=== PATIENT | female | born 1940 | race Caucasian/White ===

== ENCOUNTER → 2018-07-04 | Day surgery (SDC) | payer MEDICARE ==
[~2018-07-04] VITALS: Ht 165.1 cm; Wt 81.6 kg
[~2018-07-04] MED LIST: ALEVE220 MG PO; ALPHA LIPOIC300 MG; ALPHA LIPOIC300 MG PO; AMARYL4 MG PO; CARVEDILOL12.5 MG PO; CATALYN; CATAPLEX D; FISH OIL 1,2001 EACH PO; FISH OIL 10001000 MG PO; GLIPIZIDE10 M2 PO; GLUCOPHAGE500 M1 PO; GLYBURIDE2.5 MG PO; LEVOTHYROXINE125 MCG PO; LISINOPRIL40 MG PO; Levoxyl0.137 MG PO; METFORMIN500 MG PO; MULTIPLE VITAMI1 CAP PO; OMEPRAZOLE20 MG; PROBIOTIC250 MG PO; SILYMARIN PO; SIMVASTATIN20 MG PO; TRACE MINERALS; ULTRA B-100 CO1 EACH PO; VITAMIN D PO; VITAMIN D31000 UNI1 PO; [UNRECOGNIZED DRUG - OTHER]; [UNRECOGNIZED DRUG - REMARK]
--- NOTE | ~2018-07-04 | O ---
[place], [place] OPERATIVE NOTE NAME: JEFF CLARKE UNIT #: [id number] ROOM: DOCTOR: MARIA ELENA PARKER MD BIRTHDATE: [birth year] DOS: 07/04/2018 GASTROENDOSCOPIC REPORT HISTORY OF PRESENT ILLNESS: A 77-year-old patient who was presented with chief complaint of history of colonic polyp, family history of colonic carcinoma in grandfather and some changes in bowel habit. PAST MEDICAL HISTORY: Hypertension, diabetes mellitus, hypercholesterolemia, hypothyroidism. PAST SURGICAL HISTORY: Cholecystectomy and ankle repair. SOCIAL HISTORY: Nonsmoker, nonalcohol consumer. PROCEDURE: Today's procedure part of investigation is colonoscopy. PREMEDICATION: Propofol. SCOPE: Olympus forward-viewing colonoscope 10L video. REPORT: After putting the patient in left lateral position and application of lubricant to the scope, the scope was introduced. Thereafter, under direct visualization, I advanced through the length of colon without difficulty. Colon mucosa and vascularity carefully examined, evidence of moderate diverticulosis in sigmoid colon appreciated. Base of the cecum explored, appendiceal orifice identified, and ileocecal valve were photographed. Air was suctioned out. The patient was extubated, tolerated the procedure well. IMPRESSION: Moderate diverticulosis, sigmoid colon. PLAN AND DISCUSSION: High fiber diet. ACTIVITY: Ad noah. FOLLOWUP: Routinely with you in office, p.r.n. visit with us in [facility]. [place], [place] OPERATIVE NOTE NAME: JEFF CLARKE UNIT #: [id number] ROOM: DOCTOR: MARIA ELENA PARKER MD BIRTHDATE: [birth year] MARIA ELENA PARKER MD CM:OPRECORD:OPERATIVE NOTE [id number] MARIA ELENA PARKER MD 07/04/18 1149 interface
[2018-07-04 07:05] VITALS: BP 152/85
[2018-07-04 08:32] VITALS: BP 96/54
[2018-07-04 08:47] VITALS: BP 108/69
[2018-07-04 09:02] VITALS: BP 122/65
== END | disposition home or self-care (01) ==
LOC: SDC 06-29 13:15
DX: K57.30 Diverticulosis of large intestine without perforation or abscess without bleeding (principal); Z86.010 Personal history of colon polyps; Z80.0 Family history of malignant neoplasm of digestive organs; I10 Essential (primary) hypertension; E11.9 Type 2 diabetes mellitus without complications; E78.00 Pure hypercholesterolemia, unspecified; E03.9 Hypothyroidism, unspecified; Z90.49 Acquired absence of other specified parts of digestive tract; Z98.890 Other specified postprocedural states; Z79.899 Other long term (current) drug therapy

== ENCOUNTER → 2021-07-08 | Outpatient (CLI) | payer MEDICARE | END | disposition home or self-care (01) | LOC: US 10:46 | PROVIDERS: ATTEND Obstetrics & Gynecology | DX: N95.0 Postmenopausal bleeding (principal); R93.89 Abnormal findings on diagnostic imaging of other specified body structures ==

== ENCOUNTER → 2022-02-17 | Outpatient (CLI) | payer MEDICARE | END | disposition home or self-care (01) | LOC: CT 02-16 18:45 | PROVIDERS: ATTEND Obstetrics & Gynecology | DX: R19.09 Other intra-abdominal and pelvic swelling, mass and lump (principal); M47.819 Spondylosis without myelopathy or radiculopathy, site unspecified; K57.32 Diverticulitis of large intestine without perforation or abscess without bleeding; I25.10 Atherosclerotic heart disease of native coronary artery without angina pectoris; Z90.710 Acquired absence of both cervix and uterus; Z90.49 Acquired absence of other specified parts of digestive tract ==